=== PATIENT | female | born 1955 | race Caucasian/White ===

== ENCOUNTER 2018-04-04 08:55 | Inpatient (IN) | payer OTHER ==
[2018-04-04] MEDS ORDERED: ONDANSETRON 4 MG/2 ML VIAL IVP ONE (09:18)
[2018-04-04] MEDS ORDERED: NS 1,000 ML IV ONE (09:18)
--- NOTE | 2018-04-04 09:31 | EDPHY ---
H & P Time Seen by Provider: 04/04/18 09:06 HPI/ROS: CHIEF COMPLAINT: Vomiting, diarrhea, shortness of breath HISTORY OF PRESENT ILLNESS: This is a 62-year-old female who presents with her daughter in moderate distress. Patient has history of diabetes, on insulin, as well as hypertension and presents with history of 3 days of ongoing vomiting and diarrhea. Patient has also been noted to be short of breath with exertion but today, family noticed that her shortness of breath was not resolving with rest. She has had no fever. There have been ill contacts in the home. Patient lives in [place] but has been here in [place] living with her daughter since early January. No history of fever with vomiting and diarrhea. Patient denies any chest pain. She reports feeling lightheaded and dizzy as well as short of breath. She is visibly tachypneic. Daughter reports she has not had her insulin for several days as they have been following her sugars in the been normal. Sugar was 100' s last night. 208 this morning. No blood in the vomit or diarrhea. No history of GI bleeding. REVIEW OF SYSTEMS: Review of systems is limited secondary to the patient's clinical condition. PAST MEDICAL HISTORY: Diabetes, hypertension. Decubitus ulcers on the sacrum. History of MRSA in the past. History is limited from the patient due to her clinical condition. Daughter in the room is unsure of the patient's full list of medications. Patient denies coronary artery disease or stents, denies atrial fibrillation or pacemakers. SOCIAL HISTORY: Here with daughter. Nonsmoker. VITAL SIGNS Reviewed by me. Heart rate 110, respiratory rate 30s, visibly tachypneic. Lying with her eyes closed. Appears uncomfortable. GENERAL: Well-developed, well-nourished, tachypneic but not labored. HEENT: Atraumatic. Eyes: No icterus, no injection. Mouth: Dry mucous membranes. No erythema or lesions. Neck: supple with no adenopathy. LUNGS: Clear to auscultation. Tachypneic. No wheezes rhonchi or rales. CARDIAC: Tachycardic, no rubs murmurs or did gallops. Slightly distant. ABDOMEN: Soft, nontender, nondistended, bowel sounds normal. BACK: Mild left CVA tenderness EXTREMITIES: Abrasion at the right shoulder. No edema. Range of motion is normal throughout. NEURO: Alert and oriented, grossly nonfocal. SKIN: Warm and dry, no rash. PSYCHIATRIC: Quiet, lying with her eyes closed, no agitation. Constitutional: Initial Vital Signs Temperature (C) 36.5 C 04/04/18 09:34 Heart Rate 85 04/04/18 09:34 Respiratory Rate 22 H 04/04/18 09:34 Blood Pressure 126/75 H 04/04/18 09:34 O2 Sat (%) 98 04/04/18 09:34 O2 Delivery Mode Nasal Cannula O2 (L/minute) 2 Allergies/Adverse Reactions: codeine Allergy (Verified 04/04/18 09:33) Medical Decision Making - Diagnostics Imaging Results: Imaging Impressions Chest X-Ray 04/04/18 09:18 Impression: Bronchitis. No pneumonia. ED Course/Re-evaluation: A 62-year-old female presenting to the emergency department with dehydration from vomiting and diarrhea and also complaining of shortness of breath. She has increased work of breathing and is quite tachypneic on evaluation. She does have a history diabetes. Daughter states that her glucose this morning was 208. IV placed. 1 L normal saline begun. EKG obtained. 12-LEAD EKG: Please see the full report in [facility]. My interpretation: Sinus rhythm,query peaked T-waves. Lactic acid 3.1. Laboratory evaluation: I-STAT: Glucose 268, creatinine 2.5, BUN 45. Potassium 4.7. Bicarbonates 26. CBC: Largely unremarkable. Troponin 0.02. D-dimer is elevated at 648 with a cutoff of 400 for the upper limit of normal. However, the patient is also in her 60s in so age adjusted may be 600. Chest x-ray interpreted by myself as revealing no pneumonia. Radiology interpretation: Bronchitis, no pneumonia. On re-evaluation, patient is feeling much improved after L of normal saline. She is no longer tachypneic, now with a respiratory rate of 17. Remains afebrile. Will be admitted to the hospitalist service for acute renal insufficiency, vomiting, diarrhea. At this point no evidence of DKA. Lactic acid elevated at 3.1. This was repeated. Blood cultures, urine culture are pending at this time. Patient with no history of fever, lactic acid elevation can certainly be related to dehydration. However, patient does have an area on her right buttock which may be a very early deep space abscess. Will require further observation. Cannot image with CT scanning at this time secondary to the patient's elevated creatinine. Accepting physician Dr. Roman. Severe Sepsis/Septic Shock Care Note The patient presents to the ED with vomiting and diarrhea identified as an acute infection. The patient did have evidence of end-organ dysfunction and met criteria for severe sepsis. This condition was identified by myself at 10: 15 a.m.. The patients vital signs are 151/68, 85, 17, 98%, 36.5. The patient has a venous lactic acid performed within 3 hours of the identification of severe sepsis which was found to be 3.1. The patient has blood cultures drawn and antibiotics were withheld as the patient's source of infection was felt to be viral with vomiting and diarrhea. Stool cultures are pending. Blood cultures are pending. The initial lactate was elevated and rechecked within 6 hours of the identification time of severe sepsis and found to be: [value]. 10:30 a.m.: Patient is POC influenza is positive for influenza A. Patient's monitor begins to demonstrate bigeminy. Her potassium had noted to be 4.7 on initial evaluation. Patient was given 4 units of insulin to help treat both her hyper glycemia as well as to drive some potassium into the cells. 11:00 a.m.: Repeat lactic acid and repeat chemistries for potassium: Repeat lactic acid 1.7, repeat potassium 4.2. Differential Diagnosis: Differential diagnoses for the patient's symptom complex of vomiting, diarrhea, and shortness of breath was considered including but not limited to dehydration , norovirus, gastroenteritis, DKA, influenza, septicemia, pneumonia, pulmonary edema, cardiac causes. Consult/Admit Bed Type: Dr. Roman, [facility] - Data Points Laboratory Results: 04/04/18 04/04/18 04/04/18 10:00 09:46 09:33 PT INR POC Blood Source VENOUS Patient Temperature 36.5 DEGREES DEGREES POC VBG pH 7.52 H (7.31-7.42) POC VBG pCO2 31 mmHg L mmHg (40-44) POC VBG pO2 TNP POC VBG HCO3 26 mEq/L mEq/L (22-26) POC VBG Total CO2 27 mEq/L mEq/L (21-27) POC VBG Base Excess 3.0 mEq/L H mEq/L (-2.5-2.5) POC Mix VBG O2 Sat TNP POC Sodium POC Potassium POC Chloride POC Total CO2 POC BUN POC Creatinine POC Glucose POC Lactic Acid [place] 3.1 mmol/L H mmol/L (0.7-2.1) POC Calcium POC Troponin I 0.02 ng/mL ng/mL (0.00-0.08) Troponin I NT-Pro-B Natriuret Pep Beta-Hydroxybutyrate Nasal Influenza A PCR FLU A DETECTED H (NEGATIVE) Nasal Influenza B PCR NEGATIVE FOR FLU B (NEGATIVE) 04/04/18 04/04/18 04/04/18 09:33 09:25 09:25 PT 13.7 SEC SEC (12.0-15.0) INR 1.03 (0.83-1.16) POC Blood Source Patient Temperature POC VBG pH POC VBG pCO2 POC VBG pO2 POC VBG HCO3 POC VBG Total CO2 POC VBG Base Excess POC Mix VBG O2 Sat POC Sodium 142 mEq/L mEq/L (135-145) POC Potassium 4.7 mEq/L mEq/L (3.3-5.0) POC Chloride 97.0 mEq/L mEq/L (97-110) POC Total CO2 26 mEq/L mEq/L (22-31) POC BUN 45 mg/dL H mg/dL (7-23) POC Creatinine 2.5 mg/dL H mg/dL (0.6-1.0) POC Glucose 259 mg/dL H mg/dL (70-100) POC Lactic Acid [place]ill[place] POC Calcium 9.9 mg/dL mg/dL (8.5-10.4) POC Troponin I Troponin I < 0.012 ng/mL ng/mL (0.000-0.034) NT-Pro-B Natriuret Pep 332 pg/mL H pg/mL (0-125) Beta-Hydroxybutyrate 1.89 mmol/L H mmol/L (0.02-0.27) Nasal Influenza A PCR Nasal Influenza B PCR Medications Given: Sodium Chloride (Ns) 3,300 mls @ 550 mls/hr 30 ml/kg infuse over 6 hr (3300 ml ) IV EDNOW ONE PRN Reason: Protocol Stop: 04/04/18 16:11 Last Admin: 04/04/18 10:54 Dose: 3,300 mls Discontinued Medications Sodium Chloride (Ns) 1,000 mls @ 0 mls/hr IV EDNOW ONE; Wide Open PRN Reason: Protocol Stop: 04/04/18 09:19 Last Admin: 04/04/18 09:29 Dose: 1,000 mls Insulin Human Regular (Humulin R) 4 unit IVP ONCE ONE Stop: 04/04/18 10:38 Last Admin: 04/04/18 10:53 Dose: 4 units Ondansetron HCl (Zofran) 4 mg IVP EDNOW ONE Stop: 04/04/18 09:19 Last Admin: 04/04/18 09:29 Dose: 4 mg Point of Care Test Results: CBC CBC Collection Date 04/04/18 CBC Collection Time 09:25 WBC 7.42 RBC 5.16 HGB 15.0 HCT 46.1 PLT 413 Neut # 4.59 Neut 61.9 LYMPH # 2.33 LYMPH 31.4 MCV 89.3 Chemistry 04/04/18 04/04/18 09:33 09:33 POC Sodium 142 mEq/L mEq/L (135-145) POC Potassium 4.7 mEq/L mEq/L (3.3-5.0) POC Chloride 97.0 mEq/L mEq/L (97-110) POC Total CO2 26 mEq/L mEq/L (22-31) POC BUN 45 mg/dL H mg/dL (7-23) POC Creatinine 2.5 mg/dL H mg/dL (0.6-1.0) POC Glucose 259 mg/dL H mg/dL (70-100) POC Calcium 9.9 mg/dL mg/dL (8.5-10.4) POC Troponin I 0.02 ng/mL ng/mL (0.00-0.08) Blood Gas/Lactic Acid-Arterial 04/04/18 09:46 POC Blood Source VENOUS Blood Gas/Lactic Acid-Venous 04/04/18 09:46 POC VBG pH 7.52 H (7.31-7.42) POC VBG pCO2 31 mmHg L mmHg (40-44) POC VBG pO2 TNP POC VBG HCO3 26 mEq/L mEq/L (22-26) POC VBG Total CO2 27 mEq/L mEq/L (21-27) POC VBG Base Excess 3.0 mEq/L H mEq/L (-2.5-2.5) POC Mix VBG O2 Sat TNP POC Lactic Acid [place]ill[place] 3.1 mmol/L H mmol/L (0.7-2.1) D-Dimer D-Dimer Collection Date 04/04/18 D-Dimer Collection Time 09:25 D-Dimer (ng/ml) 642 Influenza PCR Flu Nasal Swab Collection Date 04/04/18 Flu Nasal Swab Collection Time 10:15 Influenza A Result Detected Influenza B Result Not Detected Liver Function Tests LFT Collection Date 04/04/18 Urine Dip Collection Date 04/04/18 Collection Time 11:00 Specific [place] (1.002-1.030) 1.020 PH (5.0-7.5) 7.0 Leukocytes (Negative) 3+ Nitrites (Negative) Negative Protein (Negative) 2+ Glucose (Negative) Trace Ketones (Negative) 1+ Urobilnogen (0.2-1.0 EU) 0.2 Blood (Negative) 3+ Departure - Departure Disposition: [facility] Acute Clinical Impression: Acute renal insufficiency, Dehydration, Influenza A, Vomiting and diarrhea, Bigeminy Condition: Fair
[2018-04-04] MEDS ORDERED: NS 3,300 ML IV ONE (10:12)
[2018-04-04] MEDS ORDERED: INSULIN REGULAR HUMAN 100 UNIT/ML UNIT IVP ONE (10:37)
[2018-04-04] MEDS ORDERED: INSULIN REGULAR HUMAN 100 UNIT/ML UNIT ONE (10:39)
[2018-04-04 11:43] LABS: INR 1.03 (0.83-1.16); PROTIME(PATIENT) 13.7 SEC (12.0-15.0)
[2018-04-04] MEDS ORDERED: ACETAMINOPHEN 325 MG TAB PO PRN (14:24)
[2018-04-04] MEDS ORDERED: OSELTAMIVIR PHOSPHATE 75 MG CAP PO SCH (14:28)
--- NOTE | 2018-04-04 14:50 | PDGENHP ---
History and Physical - Chief Complaint Vomiting, diarrhea - History of Present Illness HPI: This is a 62 y/o female presenting to urgent care with 3-day worth vomiting and diarrhea, no hematemesis, hematochezia, or melena. She has also been short of breath upon exertion, but daughter noticed today that the shortness of breath did not resolve at rest like it has in the last couple of days. She is temporarily living with her daughter in [place] (normally lives in [place], [place]) d/t health concerns and her grandson was sick with influenza not too long ago. Endorses lightheadedness, nausea, vomiting, diarrhea that is slowly resolving per pt, and chills. Denies chest pains, palpitations, fevers. She is diabetic and has not been able to take her insulin for the last 3 days because of vomiting and diarrhea. Her glucose was checked during these times and it was around 100s. While at urgent care, the pt tested positive for influenza A. She is being admitted for further diagnostic testing and treatment. Past Medical History 1. Diabetes, on insulin 2. Hypertension 3. Ulcers on sacrum 4. Hx of MRSA (~years ago. Location was right shoulder and sternum) 5. Hyperlipidemia Past Surgical History 1. Left hip replacement (~2015) 2. Ankle surgery (~years ago) Social 1. . Lives in [place], [place] but is temporarily living with daughter in [place]. Came to [place] in January. 2. Denies tobacco or illicit drug use. Rarely drinks alcohol. History Information - Allergies/Home Medication List Allergies/Adverse Reactions: codeine Allergy (Verified 04/04/18 14:40) Vomiting Home Medications: Acetaminophen [Tylenol 325mg (*)] 325 mg PO Q6HRS PRN 04/04/18 [Last Taken Unknown] Atorvastatin Calcium [Lipitor 40 mg (*)] 40 mg PO DAILY 04/04/18 [Last Taken 3 Days Ago ~04/01/18] Ergocalciferol [Vitamin D2 (*)] 50,000 unit PO WE 04/04/18 [Last Taken 04/02/18] Fenofibrate,Micronized [Fenofibrate] 200 mg PO DAILY 04/04/18 [Last Taken 3 Days Ago ~04/01/18] Glimepiride [Amaryl] 4 mg PO DAILY 04/04/18 [Last Taken 3 Days Ago ~04/01/18] Insulin Aspart Novolog 70/30 [Novolog Mix 70/30 (*)] 10 units SC DAILY18 [Last Taken 3 Days Ago ~04/01/18] Insulin Aspart Novolog 70/30 [Novolog Mix 70/30 (*)] 15 units SC DAILY 04/04/18 [Last Taken 3 Days Ago ~04/01/18] Lisinopril [Zestril 40 mg (*)] 40 mg PO DAILY 04/04/18 [Last Taken 3 Days Ago ~ 04/01/18] Metoprolol Succinate Xr [Toprol Xl 50 mg (*)] 50 mg PO DAILY 04/04/18 [Last Taken 3 Days Ago ~04/01/18] Naproxen Sodium [Aleve 220 MG (*)] 220 mg PO BID PRN 04/04/18 [Last Taken Unknown] Venlafaxine Xr [Effexor Xr] 150 mg PO DAILY 04/04/18 [Last Taken 3 Days Ago ~07/13] amLODIPine BESYLATE [Norvasc 10 mg (*)] 10 mg PO DAILY 04/04/18 [Last Taken 3 Days Ago ~04/01/18] rOPINIRole HCL [Requip 2mg (*)] 2 mg PO BID 04/04/18 [Last Taken 3 Days Ago ~07/13] I have personally reviewed and updated: family history, medical history, social history, surgical history Past Medical History: See HPI list - Surgical History Additional surgical history: See HPI list - Family History Positive for: non-pertinent - Social History Smoking Status: Never smoked Alcohol Use: Rarely Drug Use: None Review of Systems Review of Systems: ROS: 10pt was reviewed & negative except for what was stated in HPI & below Constitutional: Reports: chills, malaise, other (Per pt "I just feel lousy. I have no energy.") EENMT: Reports: no symptoms Cardiac: Reports: lightheadedness Respiratory: Reports: shortness of breath Gastrointestinal: Reports: vomitting, diarrhea, nausea Genitourinary: Reports: no symptoms Muscolosketal: Reports: no symptoms Skin: Reports: dryness (Bilateral calcaneous), lesions (Left medial thigh wound/ Right shoulder wound) Neurological: Reports: depressed Hematologic/Lymphatic: Reports: no symptoms Immunologic/Allergy: Reports: other (Codeine) Physical Exam Physical Exam: Lab data and imaging were reviewed. Case discussed with admitting physician, Dr. Ilsa Roman WBC: 7.42 RBC/H/H: 5.16/15/46.1 PLT: 413 Neut #: 4.59 Neut: 61.9 Lymp #: 2.33 Lymph: 31.4 MCV: 89.3 @0930 @1100 Na: 142 Na: 145 K: 4.7 K: 4.2 Bun/Cr: 45/2.5 BUN/Cr: 40.2.2 Glucose: 259 Lactic Acid: 3.1 Lactic acid: 1.8 VBGs pH: 7.52 CO2: 31 Trop: <0.012 Beta-Hydroxybutyrate EKG: SR, left ventricular hypertropy? CXR: Most likely bronchitis, no evidence of pneumonia. Temp Pulse Resp BP Pulse Ox 36.6 C 102 H 24 H 122/76 H 92 04/04/18 13:42 04/04/18 13:42 04/04/18 13:42 04/04/18 13:42 04/04/18 13:42 O2 (L/minute) 2 Constitutional: obese, uncomfortable, other (Mildly tachypenic, mildly distressed) Eyes: PERRL, anicteric sclera, EOMI Ears, Nose, Mouth, Throat: hearing normal, ears appear normal, no oral mucosal ulcers, dry mucous membranes Cardiovascular: regular rate and rhythym, no murmur, rub, or gallop, No edema Peripheral Pulses: 2+: dorsalis-pedis (R) (Radial 2+), dorsalis-pedis (L) ( Radial 2+) Respiratory: reduced air movement (Bilateral lower bases) Gastrointestinal: soft, non-tender abdomen, no palpable masses, other ( Hypoactive BS) Genitourinary: no bladder fullness, no bladder tenderness Skin: abrasion (Left medial thigh area appears to be a healing-wound. She is not sure how it occured. Right shoulder healing-wound. Sacrum with possible STDI.), other Musculoskeletal: full muscle strength, no muscle tenderness, normal joint ROM, no joint effusions Neurologic: AAOx3, sensation intact bilaterally, CN II-XII Intact Psychiatric: interacting appropriately, not anxious, not encephalopathic, thought process linear Lymph, Heme, Immunologic: no cervical LAD, no supraclavicular LAD Lab Data & Imaging Review POC Hgb 13.3 gm/dL (12.6-16.3) 04/04/18 10:57 POC Hct 39 % (38-47) 04/04/18 10:57 PT 13.7 SEC (12.0-15.0) 04/04/18 09:25 INR 1.03 (0.83-1.16) 04/04/18 09:25 POC Blood Source VENOUS 04/04/18 09:46 Patient Temperature 36.5 DEGREES 04/04/18 09:46 POC VBG pH 7.52 (7.31-7.42) H 04/04/18 09:46 POC VBG pCO2 31 mmHg (40-44) L 04/04/18 09:46 POC VBG pO2 TNP 04/04/18 09:46 POC VBG HCO3 26 mEq/L (22-26) 04/04/18 09:46 POC VBG Total CO2 27 mEq/L (21-27) 04/04/18 09:46 POC VBG Base Excess 3.0 mEq/L (-2.5-2.5) H 04/04/18 09:46 POC Mix VBG O2 Sat TNP 04/04/18 09:46 POC Sodium 145 mEq/L (135-145) 04/04/18 10:57 POC Potassium 4.2 mEq/L (3.3-5.0) 04/04/18 10:57 POC Chloride 102 mEq/L (97-110) 04/04/18 10:57 POC Total CO2 22 mEq/L (22-31) 04/04/18 10:57 POC BUN 40 mg/dL (7-23) H 04/04/18 10:57 POC Creatinine 2.2 mg/dL (0.6-1.0) H 04/04/18 10:57 POC Glucose 232 mg/dL (70-100) H 04/04/18 10:57 POC Lactic Acid [place]ill[place] 1.8 mmol/L (0.7-2.1) D 04/04/18 11:06 POC Calcium 9.9 mg/dL (8.5-10.4) 04/04/18 09:33 POC Troponin I 0.02 ng/mL (0.00-0.08) 04/04/18 09:33 Troponin I < 0.012 ng/mL (0.000-0.034) 04/04/18 09:25 NT-Pro-B Natriuret Pep 332 pg/mL (0-125) H 04/04/18 09:25 Beta-Hydroxybutyrate 1.89 mmol/L (0.02-0.27) H 04/04/18 09:25 Nasal Influenza A PCR FLU A DETECTED (NEGATIVE) H 04/04/18 10:00 Nasal Influenza B PCR NEGATIVE FOR FLU B (NEGATIVE) 04/04/18 10:00 Assessment & Plan Plan: This is a 62 y/o female with history of diabetes presenting from urgent care under mild respiratory distress, vomiting and diarrhea. She has tested positive for influenza A. Her daughter was at bedside. Differential diagnoses include: influenza, diabetic ketoacidosis vs less likely pulmonary embolism and urinary tract infection. 1. Influenza A: She has been around her grandson who was confirmed to have influenza. She tested positive for this which may help to explain her shortness of breath and general malaise feeling. -Initiated Tamiflu BID -Directed testing for influenza was performed at urgent care. Will repeat a broader testing to ensure no other viruses have been missed with a respiratory panel PCR. She is aware and compliant. -Symptomatic treatment with anti-emetics and IVF. I suspect diarrhea is in relation to her influenza illness. She reports it is slowly resolving, however I will perform a GI pathogen panel to r/o any other viruses. -Encourage appetite -Blood cultures pending 2. Diabetes: She has received 4 units of insulin from urgent care. This is the first dose of insulin within the last 3 days. Her daughter informs me this is the reason why she is temporarily living with her because her diabetes has not been managed well while in [place]. Her last A1c on 01/10/18 was 16.6%. The pt could not tell me why she wasn't taking her insulin prior to this visit. -A1c pending -Initiate ISS while in hospital and continue her home insulin medications -I considered starvation ketoacidosis, especially with stated above A1c and her beta-hydroxybutyrate elevation (1.89) -- her BS mid-morning was 232. I do not consider this extreme but we will continue to monitor her glucose levels and treat accordingly. 3. Acute kidney injury: Per daughter, on 01/10/18 her BUN/Cr was 11/1.2. I suspect it is d/t hypovolemia 2/2 diarrhea and vomiting. -She received 1L NS; uncertain how much more fluids she received but will be treating her with aggressive IVF. Continue with fluids throughout the night. -Rechecking BMP at 1700 -CBC/CMP tomorrow morning 4. Cardiac arrhythmias: demonstrated bigeminy on the monitor while at urgent care. She is asymptomatic - no palpitations or chest pains. -Continue tele monitoring -Potassium 4.2, will check CMP tomorrow morning 5. Skin: She has multiple wounds - one located to her right shoulder that appears to be healing, left medial thigh that appears to be healing and on her sacrum appears to be a possible SDTI (suspected deep tissue injury). She leads a sedentary lifestyle sitting down most of her days. She is at higher risk considering the fact that she is diabetic and is more likely to have delayed wound healing. -Wound team consulted -Q2 turns Diet: Carb-controlled VTE ppx: SCDs Code: DNR Dispo: Admit to inpatient
[2018-04-04] MEDS: ONDANSETRON 4 MG/2 ML VIAL IVP PRN (16:01)
[2018-04-04] MEDS: NS 1,000 ML IV SCH (16:01)
[2018-04-04] MEDS: OSELTAMIVIR 6 MG/ML UDSYR PO SCH (16:47)
[2018-04-04] MEDS: INSULIN ASPART NovoLOG 70/30 100 UNITS/ML SYR SC SCH (18:11)
[2018-04-04] MEDS: INSULIN LISPRO 100 UNIT/ML SC SCH (18:11)
[2018-04-04] MEDS ORDERED: ACETAMN/DIPHENHYDRAMINE 500/25MG TAB PO PRN (19:13)
[2018-04-04] MEDS: VENLAFAXINE XR 150 MG CAP PO SCH (21:31)
[2018-04-05] MEDS: ONDANSETRON 4 MG/2 ML VIAL IVP PRN ×3 (02:58→22:33)
[2018-04-05] MEDS: LOPERAMIDE HCL 2 MG CAP PO ONE ×2 (05:41→06:39)
[2018-04-05] MEDS: PROMETHAZINE HCL 25 MG/ML INJ IVP PRN ×3 (05:47→17:58)
[2018-04-05] MEDS: INSULIN LISPRO 100 UNIT/ML SC SCH ×3 (08:09→16:43)
[2018-04-05 08:28] LABS: PLATELET COUNT 330 10^3/uL (150-400)
[2018-04-05] MEDS: METOPROLOL SUCCINATE XR 50 MG TAB PO SCH (09:20)
[2018-04-05] MEDS: VENLAFAXINE XR 150 MG CAP PO SCH (09:20)
[2018-04-05] MEDS: GLIMEPIRIDE 2 MG TAB PO SCH (09:20)
[2018-04-05] MEDS: ATORVASTATIN CALCIUM 40 MG TAB PO SCH (09:20)
[2018-04-05] MEDS: OSELTAMIVIR 6 MG/ML UDSYR PO SCH ×2 (09:20→18:57)
[2018-04-05] MEDS: Fenofibrate,Micronized [Fenofibrate] 200 MG PO SCH (10:10)
[2018-04-05] MEDS: INSULIN ASPART NovoLOG 70/30 100 UNITS/ML SYR SC SCH ×2 (10:14→18:00)
[2018-04-05] MEDS: VANCOMYCIN 125 MG/2.5 ML UDL PO SCH ×4 (10:15→22:33)
[2018-04-05] MEDS: NS 1,000 ML IV SCH (10:15)
--- NOTE | 2018-04-05 11:02 | PDMN ---
Medical Necessity Medical necessity: MCG: gen. admission - N/V/D X 3 days: SOB on exertion, + influenza, cardiac arrhythmias while at urgent care- demonstrating bigeminy - no CP currently- Cr. elevated 2.5, 2.2 PMHx: DM, htn, ulcers on sacrum, hx MRSA, hyperlipidemia, anticipate > 2 MN ongoing med nec care- further monitoring, eval and tx.
--- NOTE | 2018-04-05 16:51 | ASMTCMCOM ---
CM Note CM Note Notes: Spoke with RN, pt in the room and with pt's dtr Iva (address: [address] [place] [address]), with whom she is currently staying as pt lives in [place]. Pt admitted for renal insufficiency and flu in the setting of diabetes. Pt has been non compliant with diabetes treatment in the past. Pt to discharge home to dtr's home. Therapies are recommending HHC and pt would benefit from RN care for sacral wounds and diabetes management. They are agreeable to [facility] and referral was sent and accepted pending local PCP assignment. Uche Enrique in the process of finding a PCP to follow up locally on discharge. CM to follow. D/C Plan home with dtr and [facility] Date Signed: 04/05/2018 04:50 PM Electronically Signed By:Christine Frank
--- NOTE | 2018-04-05 17:23 | HOSPPROG ---
Hospitalist Progress Note Assessment/Plan: * Influenza -Tamiflu * Cdiff colitis -PO vanco * Acute renal failure due to dehydration -continue IVF * DM II - uncontrolled -last HgA1c > 16 - repeat pending -daughter moved her from [place] to improved diabetes control * Obesity BMI 38 COR status clarification - per dtr it should be FULL Subjective: Bad night, very sick, diarrhea Objective: Vital Signs Temp Pulse Resp BP Pulse Ox 37.1 C 78 16 143/73 H 96 04/05/18 15:56 04/05/18 15:56 04/05/18 15:56 04/05/18 15:56 04/05/18 15:56 Microbiology 04/05/18 04:39 Gastrointestinal Tract Panel (PCR) - Final Stool Clostridium Difficile Detected 04/04/18 15:50 Respiratory Panel (PCR) - Final Nasal, Sinus - [place] Viral Transport Influenza Virus Type A 2008 H1 Laboratory Results 04/05/18 08:03 04/05/18 08:03 04/04/18 04/05/18 04/06/18 05:59 05:59 05:59 Intake Total 3300 500 Output Total 450 200 Balance 2850 300 PT 13.7 SEC (12.0-15.0) 04/04/18 09:25 INR 1.03 (0.83-1.16) 04/04/18 09:25 - Physical Exam Constitutional: no apparent distress, appears nourished, not in pain Cardiovascular: regular rate and rhythym, no murmur, rub, or gallop Respiratory: no respiratory distress, no rales or rhonchi, clear to auscultation Gastrointestinal: normoactive bowel sounds, soft, non-tender abdomen, no palpable masses Skin: no rashes or abrasions, no fluctuance, no induration Neurologic: AAOx3, sensation intact bilaterally Psychiatric: interacting appropriately, not anxious, not encephalopathic, thought process linear ICD10 Worksheet Patient Problems: Problems Problem Status Onset Acute renal insufficiency Acute Dehydration Acute Influenza A Acute Vomiting and diarrhea Acute Bigeminy Acute
[2018-04-05] MEDS: D50W 25 GM/50 ML SYR IVP PRN (22:33)
[2018-04-06] MEDS: PROMETHAZINE HCL 25 MG/ML INJ IVP PRN ×3 (03:05→16:24)
[2018-04-06] MEDS: VANCOMYCIN 125 MG/2.5 ML UDL PO SCH ×4 (05:47→20:57)
[2018-04-06 06:07] LABS: PLATELET COUNT 304 10^3/uL (150-400)
[2018-04-06] MEDS: ONDANSETRON 4 MG/2 ML VIAL IVP PRN ×3 (08:23→18:31)
[2018-04-06] MEDS ORDERED: PROTOCOL POTASSIUM 1 DOSE MISC PRN (08:34)
[2018-04-06] MEDS: INSULIN LISPRO 100 UNIT/ML SC SCH ×3 (09:47→17:09)
[2018-04-06] MEDS: Fenofibrate,Micronized [Fenofibrate] 200 MG PO SCH (09:48)
[2018-04-06] MEDS ORDERED: POTASSIUM CL 10 MEQ TAB PO ONE ×3 (09:54→20:41)
[2018-04-06] MEDS: OSELTAMIVIR 6 MG/ML UDSYR PO SCH ×2 (09:59→18:18)
[2018-04-06] MEDS: VENLAFAXINE XR 150 MG CAP PO SCH (09:59)
[2018-04-06] MEDS: METOPROLOL SUCCINATE XR 50 MG TAB PO SCH (09:59)
[2018-04-06] MEDS: ATORVASTATIN CALCIUM 40 MG TAB PO SCH (09:59)
[2018-04-06] MEDS: GLIMEPIRIDE 2 MG TAB PO SCH (12:11)
[2018-04-06] MEDS: NS 1,000 ML IV SCH (14:30)
--- NOTE | 2018-04-06 16:04 | HOSPPROG ---
Hospitalist Progress Note Assessment/Plan: * Influenza -Tamiflu * Cdiff colitis -PO vanco * Acute renal failure due to dehydration -continue IVF * DM II - uncontrolled -last HgA1c > 16 - repeat pending -daughter moved her from [place] to improved diabetes control * Obesity BMI 38 Subjective: Still taking very minimal PO, but improving Objective: Vital Signs Temp Pulse Resp BP Pulse Ox 36.7 C 76 22 H 147/81 H 93 04/06/18 15:30 04/06/18 15:30 04/06/18 15:30 04/06/18 15:30 04/06/18 15:30 Laboratory Results 04/06/18 05:54 04/06/18 05:54 04/05/18 04/06/18 04/07/18 05:59 05:59 05:59 Intake Total 3300 500 Output Total 450 200 200 Balance 2850 300 -200 PT 13.7 SEC (12.0-15.0) 04/04/18 09:25 INR 1.03 (0.83-1.16) 04/04/18 09:25 - Physical Exam Constitutional: no apparent distress, appears nourished, not in pain Cardiovascular: regular rate and rhythym, no murmur, rub, or gallop Respiratory: no respiratory distress, no rales or rhonchi, clear to auscultation Gastrointestinal: normoactive bowel sounds, soft, non-tender abdomen, no palpable masses Skin: no rashes or abrasions, no fluctuance, no induration Neurologic: AAOx3, sensation intact bilaterally Psychiatric: interacting appropriately, not anxious, not encephalopathic, thought process linear ICD10 Worksheet Patient Problems: Problems Problem Status Onset Acute renal insufficiency Acute Dehydration Acute Influenza A Acute Vomiting and diarrhea Acute Bigeminy Acute
[2018-04-06] MEDS: NS W/ 20 KCl/L 1,000 ML IV SCH (16:28)
[2018-04-07 05:23] LABS: PLATELET COUNT 347 10^3/uL (150-400)
[2018-04-07] MEDS: VANCOMYCIN 125 MG/2.5 ML UDL PO SCH ×5 (05:34→21:44)
[2018-04-07] MEDS: INSULIN ASPART NovoLOG 70/30 100 UNITS/ML SYR SC SCH ×2 (08:40→18:15)
[2018-04-07] MEDS: NS W/ 20 KCl/L 1,000 ML IV SCH (08:40)
[2018-04-07] MEDS: INSULIN LISPRO 100 UNIT/ML SC SCH ×3 (08:41→18:17)
[2018-04-07] MEDS: METOPROLOL SUCCINATE XR 50 MG TAB PO SCH (08:42)
[2018-04-07] MEDS: ATORVASTATIN CALCIUM 40 MG TAB PO SCH (08:42)
[2018-04-07] MEDS: VENLAFAXINE XR 150 MG CAP PO SCH (08:42)
[2018-04-07] MEDS: OSELTAMIVIR 6 MG/ML UDSYR PO SCH (08:48)
[2018-04-07] MEDS: ONDANSETRON DISINTEGRATING 4 MG TAB PO PRN ×2 (08:54→21:43)
[2018-04-07] MEDS: Fenofibrate,Micronized [Fenofibrate] 200 MG PO SCH (09:01)
[2018-04-07] MEDS: ONDANSETRON 4 MG/2 ML VIAL IVP PRN (11:57)
--- NOTE | 2018-04-07 16:55 | WOCRNPDOC ---
WOCRN Advanced Assessment Note - Skin Integrity Problem, Advanced Assess Bilateral Buttock Wound Bed Constitution: Healed Site Measurement - Head-to-Toe Length X Width X Depth (cm): 1x1x0 Pressure Injury Stage: Stage 3 Pressure Injury Present on Admit: Yes Skin Integrity Problem Comment: Scarred area on right ischial tuberosity that was at least a stage 3. Now fully healed. Small scattered areas of erythema on buttocks but all are blanching. No concerns. Wound care will sign off. Left Thigh Dressing Type: Open to Air Exudate Amount: None Neela Wound Tissue: Scarred Wound Bed Constitution: Scab Site Measurement - Head-to-Toe Length X Width X Depth (cm): 1.0y1oaevk. Length from 2 to 7 oclcok is 10 cm. Skin Integrity Problem Comment: Large, deep full thickness wound with extensive scarring that is healing. Patient admits to picking at the wound be claims to not know the cause. The wound is quite old and was very deep with tunneling at superior end. Scar tissue is palpable under the skin. Will moisten scab with hydrogel. Discussed with patient that wound would likely heal rather quickly if it was kept moist and covered with regular dressing changes. Patient acknowledges guidelines for healing. Wound care will follow. Jose Capellan in room for care.
--- NOTE | 2018-04-07 17:07 | HOSPPROG ---
Hospitalist Progress Note Assessment/Plan: * Influenza -Tamiflu * Cdiff colitis -PO vanco * Acute renal failure due to dehydration -continue IVF * DM II - uncontrolled -last HgA1c > 16 - repeat improved at 10 -daughter moved her from [place] to improved diabetes control * Obesity BMI 38 Subjective: Still with extreme nausea, taking very minimal PO Objective: Vital Signs Temp Pulse Resp BP Pulse Ox 37.1 C 79 20 143/62 H 91 L 04/07/18 15:32 04/07/18 15:32 04/07/18 15:32 04/07/18 15:32 04/07/18 15:32 Laboratory Results 04/07/18 05:02 04/07/18 05:02 04/06/18 04/07/18 04/08/18 05:59 05:59 05:59 Intake Total 500 1513 Output Total 200 1400 700 Balance 300 113 -700 PT 13.7 SEC (12.0-15.0) 04/04/18 09:25 INR 1.03 (0.83-1.16) 04/04/18 09:25 - Physical Exam Constitutional: no apparent distress, appears nourished, not in pain Cardiovascular: regular rate and rhythym, no murmur, rub, or gallop Respiratory: no respiratory distress, no rales or rhonchi, clear to auscultation Gastrointestinal: normoactive bowel sounds, soft, non-tender abdomen, no palpable masses Skin: no rashes or abrasions, no fluctuance, no induration Neurologic: AAOx3, sensation intact bilaterally Psychiatric: interacting appropriately, not anxious, not encephalopathic, thought process linear ICD10 Worksheet Patient Problems: Problems Problem Status Onset Acute renal insufficiency Acute Dehydration Acute Influenza A Acute Vomiting and diarrhea Acute Bigeminy Acute
[2018-04-08] MEDS: PROMETHAZINE HCL 25 MG/ML INJ IVP PRN ×2 (01:15→17:39)
[2018-04-08] MEDS: ONDANSETRON 4 MG/2 ML VIAL IVP PRN ×3 (04:41→20:34)
[2018-04-08] MEDS: VANCOMYCIN 125 MG/2.5 ML UDL PO SCH ×5 (05:04→21:34)
[2018-04-08] MEDS: INSULIN LISPRO 100 UNIT/ML SC SCH ×3 (08:39→18:13)
[2018-04-08] MEDS: INSULIN ASPART NovoLOG 70/30 100 UNITS/ML SYR SC SCH (09:01)
[2018-04-08] MEDS: VENLAFAXINE XR 150 MG CAP PO SCH (09:01)
[2018-04-08] MEDS: METOPROLOL SUCCINATE XR 50 MG TAB PO SCH (09:01)
[2018-04-08] MEDS: ATORVASTATIN CALCIUM 40 MG TAB PO SCH (09:01)
[2018-04-08] MEDS: Fenofibrate,Micronized [Fenofibrate] 200 MG PO SCH (09:02)
[2018-04-08] MEDS: NS W/ 20 KCl/L 1,000 ML IV SCH ×2 (10:19→17:30)
[2018-04-08] MEDS: D50W 25 GM/50 ML SYR IVP PRN (11:29)
[2018-04-08 11:46] LABS: PLATELET COUNT 339 10^3/uL (150-400)
--- NOTE | 2018-04-08 16:15 | ASMTCMCOM ---
CM Note CM Note Notes: Pt is not medically stable to d/c at this time. [facility] is still able to accept. CM spoke to pts daughter Iva on the phone. She has scheduled pt for a new PCP appointment and will pay out of pocket. Pt reports that her sister who is an RN is flying out on from [place]. CM to follow. [facility] Lisette Trujillo MD Saturday04/15/18 at 10:45AM Date Signed: 04/08/2018 04:14 PM Electronically Signed By:ASHLEIGH Bearden
--- NOTE | 2018-04-08 17:50 | HOSPPROG ---
Hospitalist Progress Note Assessment/Plan: * Influenza -Tamiflu - hold due to severe nausea * Cdiff colitis -PO vanco -still N/V/D with minimal PO intake * Acute renal failure due to dehydration -continue IVF * DM II - uncontrolled -last HgA1c > 16 - repeat improved at 10 -daughter moved her from [place] to improved diabetes control -hypoglycemia due to minimal PO intake - hold DM meds * Obesity BMI 38 Subjective: Still severe nausea, not taking anything PO Objective: Vital Signs Temp Pulse Resp BP Pulse Ox 36.8 C 67 20 165/78 H 95 04/08/18 15:20 04/08/18 15:20 04/08/18 15:20 04/08/18 15:20 04/08/18 15:20 Microbiology 04/06/18 00:20 Urine Culture - Final Urine,Clean Catch Enterococcus Faecalis [place] Types Laboratory Results 04/08/18 10:20 04/08/18 05:30 04/07/18 04/08/18 04/09/18 05:59 05:59 05:59 Intake Total 1513 1845 2400 Output Total 1400 1700 1000 Balance 468 593 7971 PT 13.7 SEC (12.0-15.0) 04/04/18 09:25 INR 1.03 (0.83-1.16) 04/04/18 09:25 AXR - no toxic megacolong or obstruction - Physical Exam Constitutional: no apparent distress, appears nourished, not in pain Cardiovascular: regular rate and rhythym, no murmur, rub, or gallop Respiratory: no respiratory distress, no rales or rhonchi, clear to auscultation Gastrointestinal: normoactive bowel sounds, soft, non-tender abdomen, no palpable masses Skin: no rashes or abrasions, no fluctuance, no induration Neurologic: AAOx3, sensation intact bilaterally Psychiatric: interacting appropriately, not anxious, not encephalopathic, thought process linear ICD10 Worksheet Patient Problems: Problems Problem Status Onset Acute renal insufficiency Acute Dehydration Acute Influenza A Acute Vomiting and diarrhea Acute Bigeminy Acute
[2018-04-08] MEDS ORDERED: SCOPOLAMINE HYDROBROMIDE 1 MG/3 DAYS PATCH TD ONE (21:03)
[2018-04-09] MEDS: PROMETHAZINE HCL 25 MG/ML INJ IVP PRN ×4 (01:38→21:27)
[2018-04-09] MEDS: NS W/ 20 KCl/L 1,000 ML IV SCH ×3 (01:42→21:27)
[2018-04-09] MEDS ORDERED: LORazepam 2 MG/ML INJ IVP ONE (01:47)
[2018-04-09] MEDS: VANCOMYCIN 125 MG/2.5 ML UDL PO SCH ×4 (05:36→21:27)
[2018-04-09] MEDS: ONDANSETRON 4 MG/2 ML VIAL IVP PRN ×2 (06:37→11:30)
[2018-04-09] MEDS: INSULIN LISPRO 100 UNIT/ML SC SCH ×3 (08:06→18:30)
--- NOTE | 2018-04-09 08:45 | HOSPPROG ---
Hospitalist Progress Note Assessment/Plan: # infuenza a - tamiflu - will re-start today # c. dif with ongoing diarrhea, emesis, nausea - cont vanc PO - she may not have been tolerating this d/t emesis, thus will try flagyl IV as well # dark emesis - not consistent with acute, rapid GI bleed - recheck hgb today # acute renal failure, pre-renal - much improved - cont IVF # DM2 - better control (dtr moved her here when her A1c was > 16) - last A1c 10 - hypoglycemia d/t poor PO - holding long acting, glimepiride - cont SSI # ectopy - no real CP; she is on metop # hypertension - lisinopril (restart today at low dose), metop # obesity, BMI 38 Subjective: miserable; threw up 3 times overnight, dark colored; ongoing diarrhea Objective: Vital Signs Temp Pulse Resp BP Pulse Ox 37.2 C 82 20 163/87 H 94 04/09/18 07:41 04/09/18 07:41 04/09/18 07:41 04/09/18 07:41 04/09/18 07:41 Microbiology 04/06/18 00:20 Urine Culture - Final Urine,Clean Catch Enterococcus Faecalis Four [place] Types Laboratory Results 04/08/18 10:20 04/09/18 05:38 04/08/18 04/09/18 04/10/18 05:59 05:59 05:59 Intake Total 1845 2400 1680 Output Total 1700 1500 850 Balance 145 900 830 PT 13.7 SEC (12.0-15.0) 04/04/18 09:25 INR 1.03 (0.83-1.16) 04/04/18 09:25 chart reviewed CXR personally reviewed AXR reviewed - Physical Exam Constitutional: uncomfortable (laying in bed) Cardiovascular: regular rate and rhythym, no murmur, rub, or gallop Respiratory: no respiratory distress, no rales or rhonchi, clear to auscultation Gastrointestinal: normoactive bowel sounds, soft, non-tender abdomen, no palpable masses ICD10 Worksheet Patient Problems: Problems Problem Status Onset Acute renal insufficiency Acute Dehydration Acute Influenza A Acute Vomiting and diarrhea Acute Bigeminy Acute
[2018-04-09] MEDS: ATORVASTATIN CALCIUM 40 MG TAB PO SCH (09:23)
[2018-04-09] MEDS: VENLAFAXINE XR 150 MG CAP PO SCH (09:23)
[2018-04-09] MEDS: LISINOPRIL 10 MG TAB PO SCH (09:24)
[2018-04-09] MEDS: METOPROLOL SUCCINATE XR 50 MG TAB PO SCH (09:25)
[2018-04-09] MEDS: Fenofibrate,Micronized [Fenofibrate] 200 MG PO SCH (09:30)
[2018-04-09] MEDS: OSELTAMIVIR PHOSPHATE 75 MG CAP PO SCH ×2 (11:11→17:07)
[2018-04-09] MEDS ORDERED: PATCH REMOVAL 1 EA PATCH TD ONE (21:03)
[2018-04-10] MEDS: ONDANSETRON 4 MG/2 ML VIAL IVP PRN ×4 (01:01→20:40)
[2018-04-10 05:42] LABS: PLATELET COUNT 377 10^3/uL (150-400)
[2018-04-10] MEDS: PROMETHAZINE HCL 25 MG/ML INJ IVP PRN (06:28)
[2018-04-10] MEDS: NS W/ 20 KCl/L 1,000 ML IV SCH ×2 (06:34→17:04)
[2018-04-10] MEDS: INSULIN LISPRO 100 UNIT/ML SC SCH ×3 (09:24→18:21)
--- NOTE | 2018-04-10 09:27 | HOSPPROG ---
Hospitalist Progress Note Assessment/Plan: # ritu a - tamiflu - hold again with ongoing emesis # c. dif - cont vanc PO - trial of flagyl IV given persistent emesis # ongoing emesis, nausea - not entirely c/w c. dif, but certainly possible; also consider cyclic vomiting, etc.. - will check RUQ US with RUQ TTP; - consider CT - protonix, antiemetics # dark emesis - hgb stable, not a GI bleed # acute renal failure, pre-renal - much improved - cont IVF # DM2 - better control (dtr moved her here when her A1c was > 16) - last A1c 10 - hypoglycemia d/t poor PO - holding long acting, glimepiride - cont SSI # ectopy - no CP; she is on metop # hypertension - lisinopril (cont today at low dose), metop # obesity, BMI 38 Subjective: emesis x 5 since yesterday; ongoing nausea; diarrhea better this am Objective: Vital Signs Temp Pulse Resp BP Pulse Ox 36.9 C 80 18 135/76 H 91 L 04/10/18 07:37 04/10/18 07:37 04/10/18 07:37 04/10/18 07:37 04/10/18 07:37 Microbiology 04/04/18 10:40 Blood Culture - Final Blood Laboratory Results 04/10/18 05:12 04/10/18 05:12 04/09/18 04/10/18 04/11/18 05:59 05:59 05:59 Intake Total 2400 3940 Output Total 1500 3050 200 Balance 900 890 -200 PT 13.7 SEC (12.0-15.0) 04/04/18 09:25 INR 1.03 (0.83-1.16) 04/04/18 09:25 high risk - Physical Exam Constitutional: uncomfortable Cardiovascular: regular rate and rhythym, no murmur, rub, or gallop Respiratory: no respiratory distress, no rales or rhonchi, clear to auscultation Gastrointestinal: normoactive bowel sounds, soft, non-tender abdomen, other ( some RUQ TTP) ICD10 Worksheet Patient Problems: Problems Problem Status Onset Acute renal insufficiency Acute Dehydration Acute Influenza A Acute Vomiting and diarrhea Acute Bigeminy Acute
[2018-04-10] MEDS: PANTOPRAZOLE SODIUM 40 MG VIAL IVP SCH ×2 (10:12→20:41)
[2018-04-10] MEDS: LISINOPRIL 10 MG TAB PO SCH (10:20)
[2018-04-10] MEDS: METOPROLOL SUCCINATE XR 50 MG TAB PO SCH (10:21)
--- NOTE | 2018-04-10 10:25 | WOCRNPDOC ---
WOCRN Advanced Assessment Note - Skin Integrity Problem, Advanced Assess Left Thigh Dressing Type: Allevyn Life Dressing Description: Clean/Dry, Intact Exudate Amount: Scant Exudate Characteristic(s): Serosanguinous Integumentary Issue Intervention: Visualized Under Dressing Neela Wound Tissue: Scarred Wound Bed Constitution: Granulation Tissue (100%) Wound Edges: Epithelizing, Attached Site Measurement - Head-to-Toe Length X Width X Depth (cm): 2.5x2x0.2 from 2-7 oclock 5.5 cm Skin Integrity Problem Comment: Wound vastly improved since first assessment. Scab is gone revealing a healing full thickness wound that is 90% healed. No concerns. Continue plan of care. Wound care will follow.
[2018-04-10] MEDS: ATORVASTATIN CALCIUM 40 MG TAB PO SCH (10:57)
[2018-04-10] MEDS: Fenofibrate,Micronized [Fenofibrate] 200 MG PO SCH (10:58)
[2018-04-10] MEDS: VENLAFAXINE XR 150 MG CAP PO SCH (10:58)
[2018-04-10] MEDS: VANCOMYCIN 125 MG/2.5 ML UDL PO SCH ×4 (10:58→20:40)
[2018-04-10] MEDS: OSELTAMIVIR PHOSPHATE 75 MG CAP PO SCH (10:59)
[2018-04-10] MEDS: ENOXAPARIN 40 MG/0.4 ML SYR SC SCH (11:15)
[2018-04-10] MEDS ORDERED: IOHEXOL 300 mgI/ML (OMNIPAQUE) 150 ML BTL IV ONE (14:48)
--- NOTE | 2018-04-10 15:25 | CPEKG ---
Test Reason : OPEN Blood Pressure : / mmHG Vent. Rate : 097 BPM Atrial Rate : 097 BPM P-R Int : 149 ms QRS Dur : 088 ms QT Int : 364 ms P-R-T Axes : 027 065 069 degrees QTc Int : 463 ms Sinus rhythm Probable left atrial enlargement Confirmed by Billie Mckeon ([id number]) on 04/10/2018 3:24:15 PM Referred By: Billie Mckeon Confirmed By:Billie Mckeon
--- NOTE | 2018-04-10 16:18 | ASMTCMCOM ---
CM Note CM Note Notes: Pt still experiencing vomiting, although diarrhea is better. Pt lives at home with her daughter, she is originally from [place] but has been living here since January. DC Plan: Home care/ [facility] (RN/PT) Date Signed: 04/10/2018 04:18 PM Electronically Signed By:Kim Go RN
--- NOTE | 2018-04-10 19:33 | GCON ---
[f rep st] CONSULTATION DATE OF CONSULTATION: 04/10/2018 REQUESTING PROVIDER: Naveen Kelly MD REASON FOR CONSULTATION: Nausea, vomiting, epigastric pain, and a CT scan showing thickening to the esophagus. Dear Dr. Kelly: Thank you very kindly for asking me to evaluate this patient in consultation for a chief complaint of epigastric pain, recurrent vomiting, and a CT scan today that showed esophageal thickening and a gas tric outlet obstruction. She has been sick for months. She describes having vomiting brittany k since December of last year. It has been progressively worse over the last several weeks. She has really been unable to eat or drink much at all. She denies any actual dysphagia or food sticking or any pain with swallowing in the esophagus or chest, but does feel that there is abdominal cramping w hen she eats. She has also been having diarrhea and was diagnosed recently with Clostridium difficil e colitis and was positive for influenza. She has been feeling short of breath, fatigued, and having muscle ache as well over the last week. I am asked to assist with further evaluation and management . PAST MEDICAL HISTORY: Insulin-dependent diabetes, morbid obesity, hypertension, sacral decubitus ulc er, MRSA, hyperlipidemia. PAST SURGICAL HISTORY: Left hip replacement and an ankle surgery with pinning. This is thought to b e related to degenerative disease. MEDICATIONS: On admission, include Tylenol, Lipitor, vitamin D, fenofibrate, Amaryl, insulin, metopr olol, lisinopril, Aleve, Effexor, Norvasc, Requip. ALLERGIES: To codeine, causing nausea. SOCIAL HISTORY: She lives in [place] and is visiting her daughter. She has two children. One is in [place] and one is in [place]. She is a retired [employer] employee. She is . No tobacco. No alcohol. No substance abuse history. FAMILY HISTORY: Positive for uncle with gastric cancer. REVIEW OF SYSTEMS: CONSTITUTIONAL: General malaise. She feels fatigued. She has had muscle ache. She denies any fever, chills. She has a poor appetite. HEENT: Denies sore throat or difficulty sw allowing. No headache. She does have clear rhinorrhea. No dental or facial pain. PULMONARY: Shor t of breath. CARDIOVASCULAR: No chest pain or palpitations. GI: Negative other than the HPI. Den ies melena, hematochezia, or constipation. There is no lower abdominal pain. RHEUMATOLOGIC: Chroni c left hip and ankle pain, also some low back pain. ENDOCRINE: No heat or cold intolerance. No keron yuria or polydipsia. GENITOURINARY: No dysuria. No hematuria. DERMATOLOGIC: She has an ulcer in her sacrum, she says, from pressure, which is being treated with wound care. PSYCHIATRIC: Negative for depression, anxiety, or insomnia. HEMATOLOGIC: No bruising or epistaxis. PHYSICAL EXAM: VITAL SIGNS: Blood pressure is 157/85 with a heart rate of 76, temperature is 36.9, T-max is 37.2, respirations are 16. Oxygenation is 98% on room air. GENERAL: Obese female in no ac [place] distress. Able to provide her own history and appears comfortable. HEENT: Normocephalic, atrau matic. Oropharynx clear without thrush. No JVD or carotid bruit. PULMONARY: Clear to auscultation bilaterally, but diminished breath sounds at the bases. CARDIOVASCULAR: Regular rate and rhythm. No murmur, rub, or gallop. GI: Obese abdomen. Mild epigastric discomfort. No succussion splash. Soft, nontender. Normal bowel sounds. MUSCULOSKELETAL: No joint deformity, swelling, or warmth. D ERMATOLOGIC: Skin is warm and dry without jaundice, rash, or lesion. NEUROLOGIC: Alert to person, place, and time. Speech is fluent and normal. Mood is appropriate. Nonfocal motor exam. LABORATORY DATA: Database includes the following: White blood count 9.5, hematocrit 37.5, platelets 377. INR 1.03. Sodium 138, potassium 3.9, chloride 107, bicarbonate 24, BUN 16, creatinine 1.3. IMAGING: Includes a CT scan of the abdomen and pelvis on April 10, 2018, showing a distal esophag eal wall thickening with a distended fluid-filled stomach. The small bowel is relatively decompresse d. There are bilateral pleural effusions with a little bit of atelectasis. The liver is normal othe r than a 3 mm granuloma in the right lobe. There is no biliary dilatation. There is also splenic gr anuloma without splenomegaly. The pancreas has an atrophic body and tail without pancreatic ductal d ilatation. IMPRESSION: 1. Nausea and vomiting. 2. Epigastric abdominal pain. 3. Morbid obesity. 4. Insulin-dependent diabetes. 5. Chronic nonsteroidal anti-inflammatory drug use for degenerative joint disease. RECOMMENDATIONS: 1. Clear liquid diet. 2. Nothing by mouth after midnight. 3. Intravenous Protonix twice daily. 4. Discontinue Aleve. 5. Upper endoscopy with anesthesia assistance. The patient is at higher risk for her procedures due to her morbid obesity, likely sleep apnea, and medical comorbidity. The benefit however of interrog ating the CT findings and her current symptoms are really imperative. 6. Further recommendations to follow. The endoscopy should be able to clarify whether there is some thing more like a mechanical outlet obstruction, clarify the esophagitis is not malignant and probabl y reflux related, and maybe see if there is an element of gastroparesis given her diabetes. 7. Thank you for allowing me to be involved in her care. 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 /[id number]/MODL
[2018-04-11] MEDS: VANCOMYCIN 125 MG/2.5 ML UDL PO SCH ×4 (06:44→22:01)
[2018-04-11] MEDS: ENOXAPARIN 40 MG/0.4 ML SYR SC SCH (08:32)
[2018-04-11] MEDS: METOPROLOL SUCCINATE XR 50 MG TAB PO SCH (08:57)
[2018-04-11] MEDS: LISINOPRIL 10 MG TAB PO SCH (08:57)
[2018-04-11] MEDS: INSULIN LISPRO 100 UNIT/ML SC SCH ×3 (09:03→18:23)
[2018-04-11] MEDS: PANTOPRAZOLE SODIUM 40 MG VIAL IVP SCH ×3 (09:04→22:01)
[2018-04-11] MEDS ORDERED: LR 1,000 ML IV ONE (11:42)
--- NOTE | 2018-04-11 13:05 | PDANEPAE ---
ANE Past Medical History - Cardiovascular History Hx Hypertension: Yes Hx Chest Pain: No Hx Coronary Artery / Peripheral Vascular Disease: No Hx Palpitations: No - Pulmonary History Hx COPD: No Hx Recent Upper Respiratory Infection: Yes Hx Oxygen in Use at Home: No Hx Sleep Apnea: No Sleep Apnea Screening Result - Last Documented: Negative Pulmonary History Comment: Influenza A - Endocrine History Hx Diabetes: Yes Obesity: yes, moderate - GI History Hx Gastrointestinal Disorders: Yes Gastrointestinal History Comment: gastric outlet obstruction. C diff infection ANE Review of Systems Review of Systems: - Exercise capacity Exercise capacity: >=4 METS ANE Patient History - Allergies Allergies/Adverse Reactions: codeine Allergy (Verified 04/04/18 14:40) Vomiting - Home Medications Home medications: home medication list seen and reviewed Home Medications: Acetaminophen [Tylenol 325mg (*)] 325 mg PO Q6HRS PRN 04/04/18 [Last Taken Unknown] Atorvastatin Calcium [Lipitor 40 mg (*)] 40 mg PO DAILY 04/04/18 [Last Taken 3 Days Ago ~04/01/18] Ergocalciferol [Vitamin D2 (*)] 50,000 unit PO WE 04/04/18 [Last Taken 04/02/18] Fenofibrate,Micronized [Fenofibrate] 200 mg PO DAILY 04/04/18 [Last Taken 3 Days Ago ~04/01/18] Glimepiride [Amaryl] 4 mg PO DAILY 04/04/18 [Last Taken 3 Days Ago ~04/01/18] Insulin Aspart Novolog 70/30 [Novolog Mix 70/30 (*)] 10 units SC DAILY18 [Last Taken 3 Days Ago ~04/01/18] Insulin Aspart Novolog 70/30 [Novolog Mix 70/30 (*)] 15 units SC DAILY 04/04/18 [Last Taken 3 Days Ago ~04/01/18] Lisinopril [Zestril 40 mg (*)] 40 mg PO DAILY 04/04/18 [Last Taken 3 Days Ago ~ 04/01/18] Metoprolol Succinate Xr [Toprol Xl 50 mg (*)] 50 mg PO DAILY 04/04/18 [Last Taken 3 Days Ago ~04/01/18] Naproxen Sodium [Aleve 220 MG (*)] 220 mg PO BID PRN 04/04/18 [Last Taken Unknown] Venlafaxine Xr [Effexor Xr] 150 mg PO DAILY 04/04/18 [Last Taken 3 Days Ago ~07/13] amLODIPine BESYLATE [Norvasc 10 mg (*)] 10 mg PO DAILY 04/04/18 [Last Taken 3 Days Ago ~04/01/18] rOPINIRole HCL [Requip 2mg (*)] 2 mg PO BID 04/04/18 [Last Taken 3 Days Ago ~07/13] - NPO status NPO Status: no food or drink >8 hours NPO Since - Liquids (Date): 04/11/18 NPO Since - Liquids (Time): 00:00 NPO Since - Solids (Date): 04/11/18 NPO Since - Solids (Time): 00:00 - Smoking Hx Smoking Status: Never smoked - Alcohol Use Alcohol Use: Rarely ANE Labs/Vital Signs - Labs Result Diagrams: 04/10/18 05:12 04/10/18 05:12 - Vital Signs Vital Signs: reviewed preoperatively; see RN documention for details Blood Pressure: 151/66 Heart Rate: 71 Respiratory Rate: 19 O2 Sat (%): 96 Height: 167.64 cm Weight: 108.862 kg ANE Physical Exam - Airway Neck exam: FROM Mallampati Score: Unable to assesss Mouth exam: normal dental/mouth exam - ASA Status ASA Status: III ANE Anesthesia Plan Anesthesia Plan: general endotracheal anesthesia
[2018-04-11] MEDS ORDERED: PROPOFOL 200 MG/20 ML VIAL ONE (13:20)
[2018-04-11] MEDS ORDERED: SUCCINYLCHOLINE CHLORIDE 200 MG/10 ML SYR IVP ONE ×2 (13:21→13:30)
[2018-04-11] MEDS ORDERED: DEXAMETHASONE 4 MG/ML VIAL ONE (13:22)
[2018-04-11] MEDS ORDERED: ONDANSETRON 4 MG/2 ML VIAL ONE (13:23)
[2018-04-11] MEDS ORDERED: fentaNYL 100 MCG/2 ML INJ ONE (13:40)
[2018-04-11] MEDS ORDERED: ONDANSETRON 4 MG/2 ML VIAL IVP PRN (13:56)
[2018-04-11] MEDS ORDERED: MEPERIDINE 25 MG/0.5 ML AMP IVP PRN (13:56)
[2018-04-11] MEDS ORDERED: fentaNYL 100 MCG/2 ML INJ IVP PRN (13:56)
[2018-04-11] MEDS ORDERED: DIAZEPAM 5 MG/ML 1 ML SYR IVP PRN (13:56)
[2018-04-11] MEDS ORDERED: PROMETHAZINE HCL 25 MG/ML INJ IVP PRN (13:56)
[2018-04-11] MEDS ORDERED: NALOXONE HCL 0.4 MG/ML INJ IVP PRN (13:56)
[2018-04-11] MEDS ORDERED: LR 500 ML IV PRN (13:56)
[2018-04-11] MEDS ORDERED: ALBUTEROL 3 ML DEYVIAL IH PRN (13:56)
--- NOTE | 2018-04-11 14:19 | POSTANESTH ---
Post Anesthetic Evaluation Cardiovascular Status: Normal, Stable Respiratory Status: Normal, Stable Level of Consciousness/Mental Status: Can Participate in Eval, Mildly Sleepy, Arousable Pain Control: Adequate, Prn Tx Ordered Nausea/Vomiting Control: Adequate, Prn Tx Ordered Complications Possibly Related to Anesthesia: None Noted
--- NOTE | 2018-04-11 14:21 | GIREPORT ---
[facility] Surgical Services - Endoscopy Department Patient Name: Ellen Woodson Procedure Date: 04/11/2018 12:00 PM Patient Type: Inpatient Attending MD/ ER Physician: Alan Pretty MD Procedure: Upper GI endoscopy Indications: Epigastric abdominal pain, Abnormal CT of the GI tract, Nausea with vom iting Providers: Alan Pretty MD Medicines: Propofol per Anesthesia Complications: No immediate complications. Description of Procedure: After obtaining informed consent, the endoscope was passed under direct vision. Throughout the procedure, the patient's blood pressure, pulse, and oxygen saturations were monitored continuously. The Endoscope was intro duced through the mouth, and advanced to the second part of duodenum. The [facility] er GI endoscopy was accomplished without difficulty. The patient tolerated th e procedure well. Findings: LA Grade C (one or more mucosal breaks continuous between tops of 2 or more mucosal folds, less than 75% circumference) esophagitis with no bleedin g was found 28 to 35 cm from the incisors. One non-bleeding cratered gastric ulcer with no stigmata of bleeding wa s found in the prepyloric region of the stomach. The lesion was 20 mm in largest dimension. Biopsies were taken with a cold forceps for histolog y. A benign-appearing, intrinsic severe stenosis was found at the pylorus. This was traversed. A TTS dilator was passed through the scope. Dilation wit h a 12-13.5-15 mm balloon dilator was performed to 15 mm. A small non-bleeding diverticulum was found at the major papilla. The examined duodenum was otherwise normal. Estimated Blood Loss: Estimated blood loss: none. Post Op Diagnosis: - LA Grade C reflux esophagitis. - Non-bleeding gastric ulcer with no stigmata of bleeding. Biopsied. - Gastric stenosis was found at the pylorus. Dilated. - Neela-ampullary diverticula. Otherwise a normal examined duodenum. Recommendation: - Await pathology results. - Full liquid diet. - Give Protonix (pantoprazole): initiate therapy with 80 mg IV bolus, t hen 8 mg/hr IV by continuous infusion. - Use sucralfate suspension 1 gram PO QID. - No aspirin, ibuprofen, naproxen, or other non-steroidal anti-inflamma tory drugs. - Repeat upper endoscopy in 6 weeks to check healing and for retreatmen t. - Surgical consultation if fails medical management. - [facility]. - Thank you for allowing me to be involved in the care of your patient. Attending Participation: I personally performed the entire procedure without the assistance of a fellow, resident or surg ical university administrative assistant. Alan Pretty MD Alan Pretty MD 04/11/2018 2:20:25 PM This report has been signed electronicallyDavid MD Sukhwinder Number of Addenda: 0 Note Initiated On: 04/11/2018 12:00 PM [email or web address]
--- NOTE | 2018-04-11 14:49 | ASMTCMCOM ---
CM Note CM Note Notes: Received message that pt's insurance does not cover home care, notified. DC Plan: TBD Date Signed: 04/11/2018 02:48 PM Electronically Signed By:Kim Go RN
[2018-04-11] MEDS: VENLAFAXINE XR 150 MG CAP PO SCH (16:01)
[2018-04-11] MEDS: Fenofibrate,Micronized [Fenofibrate] 200 MG PO SCH (16:01)
[2018-04-11] MEDS: ATORVASTATIN CALCIUM 40 MG TAB PO SCH (16:01)
--- NOTE | 2018-04-11 17:15 | HOSPPROG ---
Hospitalist Progress Note Assessment/Plan: # ritu a - tamiflu - hold again with ongoing emesis # c. dif - it is impossible to tell if she really has c. dif given EGD findings , although she is still having diarrhea - cont vanc PO - stop flagyl IV - i will start low dose questran today to see if that helps - follow abdominal exam # GOO d/t large ulcer, biopsied and dilated - protonix 40 iv Q6, carafate - pureed diet - if does not improve may need surgery # esophageal thickening - d/t inflammation from emesis # acute renal failure, pre-renal - much improved - cont IVF # DM2 - better control (dtr moved her here when her A1c was > 16) - last A1c 10 - hypoglycemia d/t poor PO - holding long acting, glimepiride - cont SSI # ectopy - no CP; she is on metop # hypertension - lisinopril (cont today at low dose), metop # obesity, BMI 38 Subjective: s/p EGD; no emesis today; ongoing diarrhea Objective: Vital Signs Temp Pulse Resp BP Pulse Ox 36.9 C 68 17 151/79 H 96 04/11/18 15:51 04/11/18 15:51 04/11/18 15:51 04/11/18 15:51 04/11/18 15:51 Laboratory Results 04/10/18 05:12 04/10/18 05:12 04/10/18 04/11/18 04/12/18 05:59 05:59 05:59 Intake Total 3940 2300 320 Output Total 3050 750 0 Balance 890 1550 320 PT 13.7 SEC (12.0-15.0) 04/04/18 09:25 INR 1.03 (0.83-1.16) 04/04/18 09:25 - Time Spent With Patient Time Spent with Patient: greater than 35 minutes Time Spent with Patient: Greater than 35 minutes spent on this patients care, greater than 50% of time spent counseling, educating, and coordinating care regarding the above mentioned plan. - Physical Exam Constitutional: uncomfortable ICD10 Worksheet Patient Problems: Problems Problem Status Onset Acute renal insufficiency Acute Dehydration Acute Influenza A Acute Vomiting and diarrhea Acute Bigeminy Acute
[2018-04-11] MEDS: SUCRALFATE 1 GM/10 ML UDCUP PO SCH ×2 (18:28→22:01)
[2018-04-11] MEDS: CHOLESTYRAMINE/SUCROSE 4 GM PKT PO SCH (18:28)
[2018-04-12] MEDS: PANTOPRAZOLE SODIUM 40 MG VIAL IVP SCH ×4 (05:26→20:06)
[2018-04-12] MEDS: VANCOMYCIN 125 MG/2.5 ML UDL PO SCH ×4 (06:48→20:06)
[2018-04-12] MEDS: ENOXAPARIN 40 MG/0.4 ML SYR SC SCH (08:27)
[2018-04-12] MEDS: SUCRALFATE 1 GM/10 ML UDCUP PO SCH ×4 (08:27→20:06)
[2018-04-12] MEDS: INSULIN LISPRO 100 UNIT/ML SC SCH ×3 (08:48→18:36)
[2018-04-12] MEDS: LISINOPRIL 10 MG TAB PO SCH (10:18)
[2018-04-12] MEDS: ATORVASTATIN CALCIUM 40 MG TAB PO SCH (10:18)
[2018-04-12] MEDS: VENLAFAXINE XR 150 MG CAP PO SCH (10:19)
[2018-04-12] MEDS: METOPROLOL SUCCINATE XR 50 MG TAB PO SCH (10:19)
[2018-04-12] MEDS: CHOLESTYRAMINE/SUCROSE 4 GM PKT PO SCH (10:21)
[2018-04-12] MEDS: Fenofibrate,Micronized [Fenofibrate] 200 MG PO SCH (12:06)
--- NOTE | 2018-04-12 15:01 | SOAPPROG ---
SOAP Progress Note Assessment/Plan: Assessment: 62 year old female with obesity, HTN, uncontrolled T2DM presenting with nausea and vomiting gastric outlet obstruction found to have a crated gastric antral ulcer near the pylorus, this was partially obstructing and this area was dilated. Today clinically improved without nausea or vomiting. I suspect the initial nausea and vomiting also from mild diabetic related gastroparesis and the use of po flagyl side effect. Additionally has her first event of Clostridium difficile related diarrhea with slow improvement on antibiotics. Plan: 1. Trial to advance diet to soft mechanical and/or regular diabetic diet - left a message for the hospitalist physician about this recommendation but did not change the order 2. PPI at least BID x 12 weeks then daily 3. Repeat endoscopy in 12 weeks to assess of gastric ulcer healing 4. Follow up on H pylori gastric biopsies 5. Agree with changing flagyl to vancomycin 125 mg QID at least 14 days - could try Dificid if no improvement in diarrhea soon. 6. Agree with adding cholesytramine to regimen as well 7. Will continue to follow tomorrow Shabnam Wilkerson MD 04/12/18 14:56 Subjective: nausea and vomiting resolved, ate cream of wheat, still having diarrhea, fatigue Objective: Vital Signs Temp Pulse Resp BP Pulse Ox 35.9 C L 58 L 14 122/56 H 99 04/12/18 11:15 04/12/18 11:15 04/12/18 11:15 04/12/18 11:15 04/12/18 11:15 Laboratory Results 04/10/18 05:12 04/10/18 05:12 04/11/18 04/12/18 04/13/18 05:59 05:59 05:59 Intake Total 2300 470 Output Total 750 1500 Balance 1550 -1030 PT 13.7 SEC (12.0-15.0) 04/04/18 09:25 INR 1.03 (0.83-1.16) 04/04/18 09:25 Physical Exam - Physical Exam General Appearance: alert, no apparent distress EENT: PERRL/EOMI, normal ENT inspection, pharynx normal, TMs normal Respiratory: chest non-tender, lungs clear, normal breath sounds Cardiac/Chest: regular rate, rhythm Abdomen: normal bowel sounds, non-tender, soft Skin: normal color Neuro/Psych: alert, normal mood/affect, oriented x 3 ICD10 Worksheet Patient Problems: Problems Problem Status Onset Acute renal insufficiency Acute Bigeminy Acute Dehydration Acute Influenza A Acute Vomiting and diarrhea Acute
--- NOTE | 2018-04-12 15:38 | HOSPPROG ---
Hospitalist Progress Note Assessment/Plan: DIAGNOSES: * Intractable nausea vomiting with multiple causes including gastric outlet obstruction, Flagyl, C diff, gastroparesis * Large gastric outlet ulcer with create during obstruction * Acute influenza a * C difficile * Acute renal failure from poor perfusion due to all of above, improving * Peptic esophagitis * Pyuria of uncertain significance with multiple colony types in organisms in urine culture * Diabetes mellitus type 2 * Chronic hypertension * Obesity PLANS: * Continue proton pump inhibitors * Continue p.o. 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: Exam: alert oriented relaxed, looks very tired skin warm dry color ok, no jaundice resps not labored lungs clear BSs heart regular abd soft nondistended nontender, bowel sounds present limbs warm, no edema iv site ok Laboratory data: Sugars in reasonable range, at goal for inpatient setting Objective: Vital Signs Temp Pulse Resp BP Pulse Ox 35.9 C L 58 L 14 122/56 H 99 04/12/18 11:15 04/12/18 11:15 04/12/18 11:15 04/12/18 11:15 04/12/18 11:15 Laboratory Results 04/10/18 05:12 04/10/18 05:12 04/11/18 04/12/18 04/13/18 06:59 06:59 06:59 Intake Total 2300 470 Output Total 750 1500 Balance 1550 -1030 PT 13.7 SEC (12.0-15.0) 04/04/18 09:25 INR 1.03 (0.83-1.16) 04/04/18 09:25 - Time Spent With Patient Time Spent with Patient: greater than 35 minutes Time Spent with Patient: Greater than 35 minutes spent on this patients care, greater than 50% of time spent counseling, educating, and coordinating care regarding the above mentioned plan. ICD10 Worksheet Patient Problems: Problems Problem Status Onset Acute renal insufficiency Acute Bigeminy Acute Dehydration Acute Influenza A Acute Vomiting and diarrhea Acute
[2018-04-13] MEDS: PANTOPRAZOLE SODIUM 40 MG VIAL IVP SCH ×4 (03:21→20:00)
[2018-04-13 05:39] LABS: PLATELET COUNT 403 10^3/uL (150-400)
[2018-04-13] MEDS: SUCRALFATE 1 GM/10 ML UDCUP PO SCH ×4 (05:42→20:01)
[2018-04-13] MEDS: VANCOMYCIN 125 MG/2.5 ML UDL PO SCH ×4 (05:42→20:01)
[2018-04-13] MEDS: CHOLESTYRAMINE/SUCROSE 4 GM PKT PO SCH (09:17)
[2018-04-13] MEDS: INSULIN LISPRO 100 UNIT/ML SC SCH ×3 (09:18→17:50)
[2018-04-13] MEDS: ENOXAPARIN 40 MG/0.4 ML SYR SC SCH (09:18)
[2018-04-13] MEDS: VENLAFAXINE XR 150 MG CAP PO SCH (09:19)
[2018-04-13] MEDS: LISINOPRIL 10 MG TAB PO SCH (09:19)
[2018-04-13] MEDS: METOPROLOL SUCCINATE XR 50 MG TAB PO SCH (09:19)
[2018-04-13] MEDS: ATORVASTATIN CALCIUM 40 MG TAB PO SCH (09:20)
[2018-04-13] MEDS: Fenofibrate,Micronized [Fenofibrate] 200 MG PO SCH (09:20)
--- NOTE | 2018-04-13 12:32 | SOAPPROG ---
MICHELLE Progress Note Assessment/Plan: Assessment: 62 year old female with obesity, HTN, uncontrolled T2DM presenting with nausea and vomiting gastric outlet obstruction found to have a crated gastric antral ulcer near the pylorus, this was partially obstructing and this area was dilated. Clinically improving and is on a solid diet now. Additionally has her first event of Clostridium difficile related diarrhea with slow improvement on antibiotics. Plan: 1. Continue diabetic solid diet 2. PPI at least BID x 12 weeks then daily 3. Repeat endoscopy in 12 weeks to assess of gastric ulcer healing 4. Follow up on H pylori gastric biopsies 5. Agree with vancomycin 125 mg QID at least 14 days - could try Dificid if no improvement in diarrhea soon. 6. Agree with adding cholesytramine to regimen as well 7. Will continue to follow tomorrow Shabnam Wilkerson MD 04/13/18 12:31 Subjective: Main complaint is continued diarrhea though is improving, denies any nausea vomiting since changing to a solid dieteels much better Objective: Vital Signs Temp Pulse Resp BP Pulse Ox 36.8 C 41 L 14 147/65 H 93 04/13/18 11:51 04/13/18 11:51 04/13/18 11:51 04/13/18 11:51 04/13/18 11:51 Laboratory Results 04/13/18 05:30 04/13/18 05:30 04/12/18 04/13/18 04/14/18 05:59 05:59 05:59 Intake Total 470 1250 Output Total 1500 500 900 Balance -1030 750 -900 PT 13.7 SEC (12.0-15.0) 04/04/18 09:25 INR 1.03 (0.83-1.16) 04/04/18 09:25 Physical Exam - Physical Exam General Appearance: alert, no apparent distress Respiratory: lungs clear, normal breath sounds Cardiac/Chest: regular rate, rhythm Abdomen: normal bowel sounds, non-tender, soft Skin: normal color Neuro/Psych: alert, normal mood/affect, oriented x 3 ICD10 Worksheet Patient Problems: Problems Problem Status Onset Acute renal insufficiency Acute Bigeminy Acute Dehydration Acute Influenza A Acute Vomiting and diarrhea Acute
--- NOTE | 2018-04-13 15:17 | HOSPPROG ---
Hospitalist Progress Note Assessment/Plan: DIAGNOSES: * Intractable nausea vomiting with multiple causes including gastric outlet obstruction, Flagyl, C diff, gastroparesis * Large gastric outlet ulcer with create during obstruction * Acute influenza a * Acute C difficile * Acute renal failure from poor perfusion due to all of above, improving * Peptic esophagitis * Pyuria of uncertain significance with multiple colony types in organisms in urine culture * Diabetes mellitus type 2 well controlled here so far * Chronic hypertension good control here at present * Obesity Overall doing will witn increasing strength, less diarrhea, no vomiting, stable labs Trial of solid food ongoing May be able to discharge in next 1-2 days PLANS: * Continue proton pump inhibitors * Continue p.o. 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: Exam: alert oriented relaxed, looks less exhausted today skin warm dry color ok, no jaundice resps not labored lungs clear BSs heart regular abd soft nondistended nontender, bowel sounds present limbs warm, no edema iv site ok Laboratory data: Sugars in reasonable range, at goal for inpatient setting slight increase creat to 1.4 rest of met panel stable Hg continues to fluctuate, down today at 10.8 wbc better Objective: Vital Signs Temp Pulse Resp BP Pulse Ox 36.8 C 41 L 14 147/65 H 93 04/13/18 11:51 04/13/18 11:51 04/13/18 11:51 04/13/18 11:51 04/13/18 11:51 Laboratory Results 04/13/18 05:30 04/13/18 05:30 04/12/18 04/13/18 04/14/18 06:59 06:59 06:59 Intake Total 470 1250 Output Total 1500 500 900 Balance -1030 750 -900 PT 13.7 SEC (12.0-15.0) 04/04/18 09:25 INR 1.03 (0.83-1.16) 04/04/18 09:25 ICD10 Worksheet Patient Problems: Problems Problem Status Onset Acute renal insufficiency Acute Bigeminy Acute Dehydration Acute Influenza A Acute Vomiting and diarrhea Acute
[2018-04-14] MEDS: PANTOPRAZOLE SODIUM 40 MG VIAL IVP SCH ×4 (04:05→20:58)
[2018-04-14] MEDS: SUCRALFATE 1 GM/10 ML UDCUP PO SCH ×4 (06:28→20:58)
[2018-04-14] MEDS: VANCOMYCIN 125 MG/2.5 ML UDL PO SCH ×4 (06:28→20:58)
[2018-04-14] MEDS: ENOXAPARIN 40 MG/0.4 ML SYR SC SCH (08:07)
[2018-04-14] MEDS: LISINOPRIL 10 MG TAB PO SCH (08:08)
[2018-04-14] MEDS: ATORVASTATIN CALCIUM 40 MG TAB PO SCH (08:08)
[2018-04-14] MEDS: VENLAFAXINE XR 150 MG CAP PO SCH (08:09)
[2018-04-14] MEDS: CHOLESTYRAMINE/SUCROSE 4 GM PKT PO SCH (09:20)
[2018-04-14] MEDS: Fenofibrate,Micronized [Fenofibrate] 200 MG PO SCH (09:21)
[2018-04-14] MEDS: INSULIN LISPRO 100 UNIT/ML SC SCH ×3 (09:21→17:42)
--- NOTE | 2018-04-14 10:29 | ASMTCMCOM ---
CM Note CM Note Notes: Patient had EGD Dilation Balloon today for gastric ulcer, reflux, and esophagitis.Therapies are recommending home/homehealth care. Patient's insurance does not pay for home health. D/C plan is return to daughter's home. CM will follow. Date Signed: 04/14/2018 10:28 AM Electronically Signed By:Ella Mancia LCSW
[2018-04-14] MEDS: METOPROLOL SUCCINATE XR 50 MG TAB PO SCH (11:03)
--- NOTE | 2018-04-14 13:45 | HOSPPROG ---
Hospitalist Progress Note Assessment/Plan: DIAGNOSES: * Intractable nausea vomiting with multiple causes including gastric outlet obstruction, Flagyl, C diff, gastroparesis * Large gastric outlet ulcer with create during obstruction * Acute influenza a * Acute C difficile * Acute renal failure from poor perfusion due to all of above, improving * Peptic esophagitis * Pyuria of uncertain significance with multiple colony types in organisms in urine culture * Diabetes mellitus type 2 well controlled here so far * Chronic hypertension good control here at present * Obesity PLANS: * Continue proton pump inhibitors * Continue p.o. Vancomycin * Follow blood counts, renal function, electrolytes, blood sugars * Increase activity as able, for several walks per day, continue physical occupational therapy * Continue with no treatment for pyuria at this time unless symptoms or other signs of actual infectious process developed Possible discharge to home tomorrow if things continue to improve SUBJECTIVE: Overall feeling reasonably well, eating a little bit better, still having frequent stools but they are more formed Still does not quite feel steady enough on her feet to go home today but thinks may be able to go home tomorrow to her daughter's house No chills or sweats No bleeding OBJECTIVE Vitals reviewed: All stable without fever 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, 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: Exam: alert oriented relaxed, looks less exhausted today skin warm dry color ok, no jaundice resps not labored lungs clear BSs heart regular abd soft nondistended nontender, bowel sounds present limbs warm, no edema iv site ok Laboratory data: Sugars in reasonable range, at goal for inpatient setting Objective: Vital Signs Temp Pulse Resp BP Pulse Ox 37.2 C 57 L 18 120/60 95 04/14/18 12:11 04/14/18 12:11 04/14/18 12:11 04/14/18 12:11 04/14/18 12:11 Laboratory Results 04/13/18 05:30 04/13/18 05:30 04/13/18 04/14/18 04/15/18 06:59 06:59 06:59 Intake Total 1250 450 Output Total 500 1900 900 Balance 750 -1450 -900 PT 13.7 SEC (12.0-15.0) 04/04/18 09:25 INR 1.03 (0.83-1.16) 04/04/18 09:25 ICD10 Worksheet Patient Problems: Problems Problem Status Onset Acute renal insufficiency Acute Bigeminy Acute Dehydration Acute Influenza A Acute Vomiting and diarrhea Acute
--- NOTE | 2018-04-14 17:37 | SOAPPROG ---
SOAP Progress Note Assessment/Plan: Assessment: 62 year old female with obesity, HTN, uncontrolled T2DM presenting with nausea and vomiting gastric outlet obstruction found to have a crated gastric antral ulcer near the pylorus, this was partially obstructing and this area was dilated. Clinically improving and is on a solid diet now. Additionally has her first event of Clostridium difficile related diarrhea with slow improvement on antibiotics. Plan: 1. Continue diabetic solid diet 2. PPI at least BID x 12 weeks then daily 3. Repeat endoscopy in 12 weeks to assess of gastric ulcer healing 4. Follow up on H pylori gastric biopsies 5. Agree with vancomycin 125 mg QID at least 14 days - could try Dificid if no improvement in diarrhea soon. We briefly discuss colonoscopy with FMT if not improvement with antibiotics. 6. Agree with adding cholesytramine to regimen as well 7. Please call if you need further inpatient GI assistance Shabnam Wilkerson MD 04/14/18 17:36 04/14/18 17:36 Subjective: nausea resolved, on a solid diet, diarrhea gradually improving Objective: Vital Signs Temp Pulse Resp BP Pulse Ox 37.2 C 72 18 119/66 94 04/14/18 15:22 04/14/18 15:22 04/14/18 15:22 04/14/18 15:22 04/14/18 15:22 Laboratory Results 04/13/18 05:30 04/13/18 05:30 04/13/18 04/14/18 04/15/18 05:59 05:59 05:59 Intake Total 1250 450 500 Output Total 500 1900 900 Balance 750 -1450 -400 PT 13.7 SEC (12.0-15.0) 04/04/18 09:25 INR 1.03 (0.83-1.16) 04/04/18 09:25 Physical Exam - Physical Exam General Appearance: alert, no apparent distress Respiratory: chest non-tender, lungs clear, normal breath sounds Cardiac/Chest: normal peripheral pulses, regular rate, rhythm Abdomen: normal bowel sounds, non-tender, soft Skin: normal color Extremities: normal range of motion Neuro/Psych: alert, normal mood/affect, oriented x 3 ICD10 Worksheet Patient Problems: Problems Problem Status Onset Acute renal insufficiency Acute Bigeminy Acute Dehydration Acute Influenza A Acute Vomiting and diarrhea Acute
[2018-04-15] MEDS: PANTOPRAZOLE SODIUM 40 MG VIAL IVP SCH ×3 (03:43→16:12)
[2018-04-15] MEDS: SUCRALFATE 1 GM/10 ML UDCUP PO SCH ×2 (06:03→12:29)
[2018-04-15] MEDS: VANCOMYCIN 125 MG/2.5 ML UDL PO SCH ×3 (06:03→16:12)
[2018-04-15 07:38] VITALS: BP 134/65
[2018-04-15] MEDS: CHOLESTYRAMINE/SUCROSE 4 GM PKT PO SCH (08:38)
[2018-04-15] MEDS: INSULIN LISPRO 100 UNIT/ML SC SCH ×2 (08:40→12:25)
[2018-04-15] MEDS: LISINOPRIL 10 MG TAB PO SCH (08:40)
[2018-04-15] MEDS: ENOXAPARIN 40 MG/0.4 ML SYR SC SCH (08:40)
[2018-04-15] MEDS: VENLAFAXINE XR 150 MG CAP PO SCH (08:41)
[2018-04-15] MEDS: ATORVASTATIN CALCIUM 40 MG TAB PO SCH (08:41)
[2018-04-15] MEDS: METOPROLOL SUCCINATE XR 50 MG TAB PO SCH (08:41)
[2018-04-15] MEDS: Fenofibrate,Micronized [Fenofibrate] 200 MG PO SCH (08:49)
--- NOTE | 2018-04-15 14:56 | PDDCSUM ---
Discharge Summary Discharge Summary: DISCHARGE DIAGNOSES: * Intractable nausea vomiting with multiple etiologic factors * Gastric outlet obstruction, partial, due to large gastric ulcer with scarring * Acute influenza a infection * Acute C difficile colitis * Dehydration to all above * Acute renal failure due to above * Peptic esophagitis * Asymptomatic pyuria of uncertain significance with no specific organism on culture * Diabetes mellitus type 2 * Chronic hypertension in good control * Obesity CONSULTANTS: Dr. Alan Pretty PROCEDURES: EGD with dilation of pyloric stenosis; findings included grade C esophagitis with ulceration, 20 mm gastric ulcer leading to pyloric channel stenosis; the pyloric stenosis was dilated endoscopically without complication; biopsies showed no evidence of malignancy and testing for H pylori was negative as well HOSPITAL COURSE SUMMARY: This patient presented with several weeks of abdominal bloating and discomfort with early satiety and poor intake, finally leading to 3 days worth of vomiting. There is also some diarrhea and she felt fevers. She was found to have influenza a acutely but also was found to have evidence of a gastric outlet obstruction. In addition C difficile was present and she was having diarrhea. There was fever. The patient started on treatment for her influenza with Tamiflu, and antibiotics for C diff. In addition she had upper endoscopy which showed large 20 mm crater ulcer in the low stomach with a pyloric stenosis causing partial gastric outlet obstruction. Biopsies were negative for malignancy and there was no signs of H pylori. She was started on proton pump inhibitors and Carafate and her stenosis was dilated endoscopically successfully. At this time she is now back to eating a normal diet without difficulty no nausea or vomiting. Her diarrhea has mostly resolved though her bowels are not quite back to normal. Fevers are gone. Her achiness is gone. Her generalized weakness and debility have improved markedly. She feels comfortable to go home at this point. On examination she has unremarkable vital signs, she is ambulating well looks comfortable skin warm and dry good color no abdominal discomfort or bloating or tenderness. There is no rash. There have been no signs of bleeding PENDING TEST RESULTS: None MEDICATION CHANGES: Addition of proton pump inhibitor Protonix twice daily for 12 weeks at which time she will have repeat endoscopy, plan for probably indefinite acid suppression FOLLOW-UP PLAN: With Gastroenterology in 12 weeks sooner if symptoms recur With primary care 1-2 weeks Greater than 35 minutes bedside and care coordination time today
--- NOTE | 2018-04-15 16:04 | ASMTDCNOTE ---
Case Management Discharge Discharge Order Complete? Answers: Yes Patient to Obtain Answers: Independently Medications Transportation Arranged Answers: Family/Friends Family Notified Answers: Yes Notes: daughterIva Discharge Comments Notes: Patient is discharging to home today independently. She is currently living with her daughterIva who will be picking her up today. No further needs. Date Signed: 04/15/2018 04:03 PM Electronically Signed By:Ella Mancia LCSW
--- NOTE | 2018-04-15 16:06 | ASMTLACE ---
LACE Length of stay for Answers: 7-13 days current admission Acuity / Level of Answers: Yes Care: Did the patient have an inpatient admission? Comorbidities - select Answers: Diabetes (uncontrolled or all that apply controlled) Other Notes: HTN, h/o MRSA, current ulcers on sacrum # of Emergency department Answers: 1-2 visits in the last 6 months Score: 11 Date Signed: 04/15/2018 04:06 PM Electronically Signed By:Ella Mancia LCSW
--- NOTE | 2018-04-15 16:09 | ASDISCHSUM ---
Discharge Information Plan Status:Home with No Needs Medically Cleared to Leave:04/14/2018 Discharge Date:04/14/2018 CM D/C Disposition:Home, Routine, Self-Care ADT D/C Disposition:Home, Routine, Self-Care Projected Discharge Date:04/07/2018 11:00 AM Transportation at D/C:Family Discharge Delay Reason: Follow-Up Date:04/07/2018 11:00 AM Discharge Slot:2 - 12:01 pm - 18:00 pm Final Diagnosis:influenza, cdiff colitis, gastric outlet obstruction Placement Information Referral Type:*Home Health Care Services Referral ID:[id number] Provider Name: Address 1: Phone Number: Address 2: Fax Number: City: Selection Factors: State: Patient Contact Information Contact Name:WOO Relationship:Daughter Address:[address] Work Phone: [facility]:[place] Alternate Phone: State/Zip Code:[place] [address] Email: Financial Information Financial Class:Commercial Primary Plan Desc:[facility] Primary Plan Number:[id number] Secondary Plan Desc: Secondary Plan Number: Assessment Information LACE LACE Length of stay for Answers: 7-13 days current admission Acuity / Level of Answers: Yes Care: Did the patient have an inpatient admission? Comorbidities - select Answers: Diabetes (uncontrolled or all that apply controlled) Other Notes: HTN, h/o MRSA, current ulcers on sacrum # of Emergency department Answers: 1-2 visits in the last 6 months Score: 11 Date Signed: 04/15/2018 04:06 PM Electronically Signed By:Ella Mancia LCSW KRIS LIAN Progress Note CM Note CM Note Notes: Spoke with RN, pt in the room and with pt's dtr Iva (address: [address] [place] [address]), with whom she is currently staying as pt lives in [place]. Pt admitted for renal insufficiency and flu in the setting of diabetes. Pt has been non compliant with diabetes treatment in the past. Pt to discharge home to dtr's home. Therapies are recommending HHC and pt would benefit from RN care for sacral wounds and diabetes management. They are agreeable to [facility] and referral was sent and accepted pending local PCP assignment. Dtr Iva in the process of finding a PCP to follow up locally on discharge. CM to follow. D/C Plan home with dtr and [facility] Date Signed: 04/05/2018 04:50 PM Electronically Signed By:Christine Frank [facility] CM Progress Note CM Note CM Note Notes: Pt is not medically stable to d/c at this time. [facility] is still able to accept. CM spoke to pts daughter Iva on the phone. She has scheduled pt for a new PCP appointment and will pay out of pocket. Pt reports that her sister who is an RN is flying out on from [place]. CM to follow. [facility] Lisette Trujillo MD Saturday04/15/18 at 10:45AM Date Signed: 04/08/2018 04:14 PM Electronically Signed By:ASHLEIGH Bearden [facility] CM Progress Note CM Note CM Note Notes: Pt still experiencing vomiting, although diarrhea is better. Pt lives at home with her daughter, she is originally from [place] but has been living here since January. DC Plan: Home care/ [facility] (RN/PT) Date Signed: 04/10/2018 04:18 PM Electronically Signed By:Kim Go RN [facility] CM Progress Note CM Note CM Note Notes: Received message that pt's insurance does not cover home care, notified. DC Plan: TBD Date Signed: 04/11/2018 02:48 PM Electronically Signed By:Kim Go RN [facility] CM Progress Note CM Note CM Note Notes: Patient had EGD Dilation Balloon today for gastric ulcer, reflux, and esophagitis.Therapies are recommending home/homehealth care. Patient's insurance does not pay for home health. D/C plan is return to daughter's home. CM will follow. Date Signed: 04/14/2018 10:28 AM Electronically Signed By:Ella Mancia LCSW Case Management Discharge Plan Note Case Management Discharge Discharge Order Complete? Answers: Yes Patient to Obtain Answers: Independently Medications Transportation Arranged Answers: Family/Friends Family Notified Answers: Yes Notes: daughter, Iva Discharge Comments Notes: Patient is discharging to home today independently. She is currently living with her daughter, Iva who will be picking her up today. No further needs. Date Signed: 04/15/2018 04:03 PM Electronically Signed By:Ella Mancia LCSW Intervention Information
== END 2018-04-15 16:46 | disposition home or self-care (01) | DRG 381 ==
LOC: CED 08:55 → OBSVTOIN 10:20 → CEDHOLD 10:20 → F3E 13:35
PROVIDERS: ADMIT Internal Medicine; ATTEND Internal Medicine
PROC: 0DB68ZX Excision of Stomach, Via Natural or Artificial Opening Endoscopic, Diagnostic (ICD-10-PCS; principal; 2018-04-11 12:15)
PROC: 0D778ZZ Dilation of Stomach, Pylorus, Via Natural or Artificial Opening Endoscopic (ICD-10-PCS; principal; 2018-04-11 12:15)
DX: K31.1 Adult hypertrophic pyloric stenosis (principal); A04.72 Enterocolitis due to Clostridium difficile, not specified as recurrent; N17.8 Other acute kidney failure; N39.0 Urinary tract infection, site not specified; K22.10 Ulcer of esophagus without bleeding; J10.1 Influenza due to other identified influenza virus with other respiratory manifestations; E86.0 Dehydration; K28.9 Gastrojejunal ulcer, unspecified as acute or chronic, without hemorrhage or perforation; E11.9 Type 2 diabetes mellitus without complications; I10 Essential (primary) hypertension; E66.01 Morbid (severe) obesity due to excess calories; Z79.84 Long term (current) use of oral hypoglycemic drugs; Z96.642 Presence of left artificial hip joint; Z68.38 Body mass index [BMI] 38.0-38.9, adult; Z66 Do not resuscitate
CPT/HCPCS: 71046-PO; 80048-ER; 82435-PO; 82565-PO; 82947-PO; 83605-ER; 84132-PO; 84295-PO; 84484-ER; 84520-PO; 85014-ER; 96361-ER; 96374-ER; 96375-ER; 97116-GP; 97161-GP; 97165-GO; 97535-GO; C1726; J0330; J1100; J1650; J1815; J2060; J2405; J2550; J2704; J3010; Q9967